=== PATIENT | female | born 1985 | race Caucasian/White ===

== ENCOUNTER → 2018-08-13 10:28 | Outpatient (CLI) | payer OTHER, SELFPAY ==
[2018-08-13 11:58] LABS: Free Thyroxine Index 2.8 ug/dL (5.93-13.13); T4 (Thyroxine) 9.5 ug/dl (4.7-13.3); Thyroid Stimulating Hormone 0.95 uIU/ml (0.358-3.740); Triiodothryronine (T3) Uptake 29 % (31-39)
[2018-08-14 17:19] LABS: Triiodothyronine (T3) Free 3.5 pg/mL (2.0-4.4)
== END ==
PROVIDERS: Visit Provider Nurse Practitioner Obstetrics & Gynecology
DX: R53.82 Chronic fatigue, unspecified (principal); R68.89 Other general symptoms and signs
CPT/HCPCS: 36415; 84436; 84443; 84479; 84481

== ENCOUNTER → 2019-07-19 12:24 | Outpatient (CLI) | payer OTHER, SELFPAY ==
--- NOTE | 2019-07-19 12:25 | MM_ITS ---
PROCEDURE: MM DIG MAMM BI DX W/CAD CLINICAL INDICATION: Dx Mamm right breast- Abnormal Mammogram Bilateral breast pain the COMPARISON: No exams were available for comparison TECHNIQUE: Standard images performed along with spot compression views FINDINGS: There is average fibroglandular tissue. Scattered asymmetries are noted. Asymmetric density noted in the lower inner right breast upper right breast and outer left breast. There are numerous punctate foci of increased density in the left axillary region which may be due to deodorant artifact. Recommend repeat exam with thorough cleansing of the axilla. IMPRESSION: Incomplete, additional imaging suggested. Recommend bilateral breast ultrasound due to the areas of asymmetric density and also recommend repeating left MLO view following thorough cleansing of the axilla of deodorant. Spot-compression views suggested of the asymmetric density in the lateral left breast. Also recommend bilateral mL views BI-RAD Category: 0 Need Additional Imaging Evaluation FOLLOW-UP: IMM Immediate Follow-up Recommended (A letter has been sent to the patient regarding results of the study.) Dictated by: Neil Chávez MD 07/31/2019 08:35 Electronically signed by Neil Chávez MD in [place] 07/31/2019 08:35
== END ==
PROVIDERS: PCP Nurse Practitioner Obstetrics & Gynecology; Visit Provider Nurse Practitioner Obstetrics & Gynecology
DX: R92.8 Other abnormal and inconclusive findings on diagnostic imaging of breast (principal)
CPT/HCPCS: 77066

== ENCOUNTER → 2019-08-27 13:59 | Outpatient (CLI) | payer OTHER, SELFPAY ==
--- NOTE | 2019-08-27 13:59 | US_ITS ---
PROCEDURE: MM DIG MAMM BI DX W/CAD with 3D tomosynthesis CLINICAL INDICATION: other signs and symptoms in breast Follow-up abnormal mammogram COMPARISON: MM DIG MAMM BI DX W/CAD from 07/19/2019 US BREAST LT COMPLETE from 08/27/2019 US BREAST RT COMPLETE from 08/27/2019 TECHNIQUE: Problem solving views with breast ultrasound bilateral and 3D Tomosynthesis was obtained. R2 CAD reviewed. FINDINGS: Heterogeneously dense fibroglandular tissue. Scattered areas of asymmetry but no malignant appearing mass or malignant-appearing microcalcification. Asymmetry present in the medial and superior aspect of the right breast felt to be related to fibroglandular tissue without sonographic correlate. Previously noted punctate foci of increased density in the left axilla not apparent. Asymmetry in the superior left breast felt to be related to overlying fibroglandular tissue. No sonographic correlate. Asymmetry in the lateral left breast also felt to be due to overlapping fibroglandular tissue without sonographic correlate. Right breast ultrasound: 5 mm cyst at 12 o'clock near the nipple. No suspicious nodules. Left breast ultrasound: No cystic or solid nodules evident. IMPRESSION: Probably benign findings. Recommend bilateral 6 month follow-up to confirm baseline BI-RAD Category: 3 Probably Benign Finding Short Term Follow-up FOLLOW-UP: 6M 6Month Follow-up (A letter has been sent to the patient regarding results of the study.) Dictated by: Neil Chávez MD 08/28/2019 10:22 Electronically signed by Neil Chávez MD in [place] 08/28/2019 10:22
== END ==
PROVIDERS: PCP Family Medicine; Visit Provider Nurse Practitioner Obstetrics & Gynecology
DX: N64.59 Other signs and symptoms in breast (principal)
CPT/HCPCS: 76641; 77062; 77066; G0279

== ENCOUNTER → 2020-01-11 14:28 | Outpatient (CLI) | payer OTHER, SELFPAY ==
--- NOTE | 2020-01-11 14:28 | MM_ITS ---
PROCEDURE: MM DIG MAMM BI DX W/CAD Digital Breast Tomosynthesis Included CLINICAL INDICATION: 6 month f/u for asymmetry in each breast dx xmg/pt. found new lump Lt. breast COMPARISON: MM DIG MAMM BI DX W/CAD from 07/19/2019 MM DIG MAMM BI DX W/CAD from 08/27/2019 US BREAST LT COMPLETE from 01/13/2020 TECHNIQUE: Standard CC and MLO images and 3D Tomosynthesis was obtained. R2 CAD reviewed. FINDINGS: Moderate diffuse somewhat heterogenic fibroglandular densities are seen in both breasts. Hector images are most helpful and this type of breast parenchyma. There is a subtle area of asymmetric glandular elements lateral subareolar region left breast. A metallic marker was placed on the left breast outer quadrant at the site of the possible palpable area and there is no underlying abnormality noted. Ultrasound left breast performed 01/13/2020 show no ultrasound correlation or abnormality. IMPRESSION: Moderate diffuse breast density with no suspicious lesions seen BI-RAD Category: 1 Negative FOLLOW-UP: 1YR 1 Year Follow-up (A letter has been sent to the patient regarding results of the study.) Dictated by: Dr. Addy Pagan MD 01/14/2020 08:[address] Addy Pagan MD in [place] 01/14/2020 08:21
== END ==
PROVIDERS: PCP Family Medicine; Visit Provider Nurse Practitioner Obstetrics & Gynecology
DX: R92.8 Other abnormal and inconclusive findings on diagnostic imaging of breast (principal); N63.42 Unspecified lump in left breast, subareolar
CPT/HCPCS: 77062; 77066; G0279

== ENCOUNTER → 2020-01-13 08:42 | Outpatient (CLI) | payer OTHER, SELFPAY ==
--- NOTE | 2020-01-13 08:43 | US_ITS ---
PROCEDURE: US BREAST LT COMPLETE CLINICAL INDICATION: palpable mass in left breast COMPARISON: US BREAST LT COMPLETE from 08/27/2019 US BREAST RT COMPLETE from 08/27/2019 MM DIG MAMM BI DX W/CAD from 01/11/2020 FINDINGS: No cystic or solid lesions are evident. IMPRESSION: Negative left breast ultrasound. Please see mammogram report 01/11/2020 for further recommendations Dictated by: Neil Chávez MD 01/14/2020 11:34 Electronically signed by Neil Chávez MD in [place] 01/14/2020 11:34
== END ==
PROVIDERS: PCP Family Medicine; Visit Provider Nurse Practitioner Obstetrics & Gynecology
DX: N63.20 Unspecified lump in the left breast, unspecified quadrant (principal)
CPT/HCPCS: 76641

== ENCOUNTER → 2022-02-28 12:06 | Outpatient (CLI) | payer OTHER, SELFPAY ==
--- NOTE | 2022-02-28 12:24 | US_ITS ---
FINAL REPORT CLINICAL HISTORY: pelvic pain FINDINGS: Transvaginal sonographic images of the pelvis were obtained. The uterus measures 8.4 x 4.0 x 4.9 cm. The endometrium measures 5 mm. An IUD is seen in the uterus. The right ovary measures 2.4 x 1.5 x 1.1 cm. The left ovary measures 4.3 x 3.7 x 2.9 cm. There is a 3.7 cm left ovarian cyst. IMPRESSION: Left ovarian cyst measures 3.7 cm. Reviewed, Interpreted and Dictated by Demar Rashid III, MD Transcribed by Cherelle Mills Authenticated and [facility]
[2022-02-28 13:15] LABS: Basophils # 0.1 K/mm3 (0-0.2); Basophils % 0.6 % (0.1-2.0); Eosinophils # 0.5 K/mm3 (0.0-0.4); Hemoglobin 13.4 g/dL (12.2-16.2); Lymphocytes % 24.5 % (10-50); Mean Corpuscular HGB Conc 32.7 g/dL (31.8-35.4); Mean Corpuscular Hemoglobin 31.5 pg (27.0-31.2); Mean Corpuscular Volume 96.5 fl (81-99); Mean Platelet Volume 7.7 fl (7.4-10.4); Monocytes # 0.4 K/mm3 (0.1-1.0); Monocytes % 4.6 % (1.7-9.3); Neutrophils # 5.3 K/mm3 (1.8-7.8); Neutrophils % 64.3 % (37.0-80.0); Platelet Count 380 K/mm3 (142-424); Red Blood Count 4.24 M/mm3 (4.20-5.40); White Blood Count 8.3 K/mm3 (4.8-10.8)
[2022-02-28 13:50] LABS: Chloride 110 mmol/L (98-107)
[2022-02-28 13:51] LABS: Potassium 4.1 mmoL/L (3.5-5.1); Sodium 141 mmol/L (136-145)
[2022-02-28 13:53] LABS: Alanine Aminotransferase 17 U/L (12-78); Alkaline Phosphatase 55 U/L (38-126); Anion Gap 10.1 mEq/L (5-15); Aspartate Amino Transferase 24 U/L (14-36); Bilirubin,Total 0.5 mg/dl (0.2-1.3); Blood Urea Nitrogen 17 mg/dl (7-17); Carbon Dioxide 25 mmol/L (22.0-30.0); Estimated Glomerular Filt Rate 112 ml/min (>60); GFR (African American) 135 ML/MIN (>60)
[2022-02-28 13:54] LABS: Albumin/Globulin Ratio 1.8 (1.1-1.8); Calcium 9.3 mg/dl (8.4-10.2); Cholesterol 169 mg/dl (140-200); Globulin 2.2 g/dL (1.3-3.2); Glucose 92 mg/dl (74-100); Total Protein,Serum 6.2 g/dl (6.3-8.2)
[2022-02-28 14:24] LABS: Thyroid Stimulating Hormone 0.71 uIU/mL (0.465-4.68)
[2022-03-01 08:18] LABS: FSH 10.1 mIU/mL (.); LH 7.2 mIU/mL (.)
== END ==
PROVIDERS: PCP Family Medicine; Visit Provider Nurse Practitioner Obstetrics & Gynecology
DX: Z01.419 Encounter for gynecological examination (general) (routine) without abnormal findings (principal); R10.2 Pelvic and perineal pain
CPT/HCPCS: 36415; 76830; 80053; 82465; 83001; 83002; 84443; 85025

== ENCOUNTER → 2022-04-29 12:43 | Outpatient (CLI) | payer OTHER, SELFPAY ==
--- NOTE | 2022-04-29 12:44 | US_ITS ---
FINAL REPORT CLINICAL HISTORY: follow up to Left ovarian cyst FINDINGS: Transvaginal sonographic images of the pelvis were obtained. The uterus measures 6.8 x 4.4 x 3.6 cm. The endometrium measures 8 mm, which is within normal limits. There is an IUD in the endometrium. The right ovary measures 3.2 cm in length and left ovary measures 3.9 cm in length. Normal blood flow seen to the ovaries. There are 2 left ovarian cysts measuring 2.1 and 1.3 cm. There is no evidence of free fluid. IMPRESSION: IUD in the endometrium. Two left ovarian cysts. Reviewed, Interpreted and Dictated by Demar Rashid III, MD Transcribed by Rob Lacy Authenticated and [facility]
== END ==
PROVIDERS: PCP Family Medicine; Visit Provider Nurse Practitioner Obstetrics & Gynecology
DX: N83.202 Unspecified ovarian cyst, left side (principal)
CPT/HCPCS: 76830

== ENCOUNTER 2024-06-01 09:37 | Outpatient (CLI) | payer OTHER, SELFPAY ==
[2024-06-01 10:05] LABS: Basophils # 0.1 K/mm3 (0-0.2); Basophils % 0.9 % (0.1-2.0); Eosinophils # 0.5 K/mm3 (0.0-0.4); Eosinophils % 4.4 % (0.1-12.0); Hematocrit 40.3 % (37.0-47.0); Hemoglobin 13.8 g/dL (12.2-16.2); Lymphocytes # 2.1 K/mm3 (0.7-4.5); Lymphocytes % 20.8 % (10-50); Mean Corpuscular HGB Conc 34.2 g/dL (31.8-35.4); Mean Corpuscular Hemoglobin 30.3 pg (27.0-31.2); Mean Corpuscular Volume 88.5 fl (81-99); Mean Platelet Volume 6.8 fl (7.4-10.4); Monocytes # 0.5 K/mm3 (0.1-1.0); Monocytes % 4.9 % (1.7-9.3); Platelet Count 376 K/mm3 (142-424); Red Blood Count 4.56 M/mm3 (4.20-5.40); Red Cell Distribution Width 13.5 % (11.5-17.5); White Blood Count 10.2 K/mm3 (4.8-10.8)
[2024-06-01 10:40] LABS: Alanine Aminotransferase 27 U/L (12-78); Albumin Level 4.1 g/dl (3.5-5.0); Albumin/Globulin Ratio 1.9 (1.1-1.8); Alkaline Phosphatase 54 U/L (38-126); Anion Gap 11.8 mEq/L (5-15); Aspartate Amino Transferase 25 U/L (14-36); Bilirubin,Total 0.7 mg/dl (0.2-1.3); Blood Urea Nitrogen 13 mg/dl (7-17); Calcium 9.3 mg/dl (8.4-10.2); Carbon Dioxide 26 mmol/L (22.0-30.0); Chloride 104 mmol/L (98-107); Chol/HDL Ratio 4.6 (1-3.5); Cholesterol 151 mg/dl (140-200); Estimated Glomerular Filt Rate 111 ml/min (>60); GFR (African American) 134 ML/MIN (>60); Globulin 2.2 g/dL (1.3-3.2); Glucose 86 mg/dl (74-100); HDL Cholesterol 33 mg/dl (40-60); Potassium 4.8 mmoL/L (3.5-5.1); Sodium 137 mmol/L (136-145); Total Protein,Serum 6.3 g/dl (6.3-8.2); Triglycerides 64 mg/dl (30-150); VLDL Cholesterol 13 mg/dL (0-40)
[2024-06-01 10:50] LABS: Direct LDL Cholesterol 104.28 mg/dL (100-129)
== END 2024-06-01 23:59 | disposition home or self-care (01) ==
LOC: LAB 09:38
PROVIDERS: PCP Internal Medicine Cardiovascular Disease; Visit Provider Nurse Practitioner Obstetrics & Gynecology
DX: Z01.419 Encounter for gynecological examination (general) (routine) without abnormal findings (principal)
CPT/HCPCS: 36415; 80053; 80061; 85025